=== PATIENT | female | born 1955 | race Caucasian/White ===

== ENCOUNTER → 2016-07-06 | Outpatient (CLI) | payer BC ==
[~2016-07-06] MED LIST: AMBIEN5 MG PO; ASPIRIN325 MG PO; ASPIRIN81 M1 PO; COMBIVENT1 AR1 IH; FLEXERIL10 MG PO; FLOVENT HF0.11 MG/AC INH; HUMULIN 70/30 703 M1 SC; HYDR12.5C PO; JANUVIA50 MG PO; LANTUS100 U/ML SC; LIPITOR40 MG PO; METFORMIN500 MG PO; NORCO 325 MG-51 TAB PO; SINGULAIR10 MG PO; SYNTHROID,LEVO75 MCG PO; TOPAMAX200 MG PO; ZEBETA5 MG PO; ZEGERID 20 MG-11 CAP PO; ZOFRAN4 MG PO
[2016-07-06 07:06] LABS: BASO % 0.4 % (0.0-1.0); EOS # 0.4 10*3/uL (0.0-0.4); EOS % 3.3 % (1.0-4.0); HEMATOCRIT 45.3 % (37.0-47.0); HEMOGLOBIN 15.8 g/dl (12.0-16.0); LYMPH # 2.8 10*3/uL (1.3-4.4); LYMPH % 25.9 % (27.0-41.0); MEAN CELL VOLUME 89.3 fl (81.0-99.0); MEAN CORPUSCULAR HGB 31.2 pg (27.0-31.0); MEAN CORPUSCULAR HGB CONC 34.9 g/dl (33.0-37.0); MEAN PLATELET VOLUME 11.1 fl (9.6-12.3); MONO # 0.9 10*3/uL (0.1-1.0); MONO % 7.9 % (3.0-9.0); NEUT # 6.7 10*3/uL (2.3-7.9); NEUT % 62.2 % (47.0-73.0); PLATELET COUNT AUTOMATED 198 10*3/uL (130-400); RED BLOOD COUNT 5.07 10*6/uL (4.10-5.10); RED CELL DISTRI WIDTH 12.1 % (0-14.5); WHITE BLOOD COUNT 10.8 10*3/uL (4.8-10.8)
[2016-07-06 07:35] LABS: HEMOGLOBIN A1c 7.8 % (4.8-5.6)
[2016-07-06 07:45] LABS: ALBUMIN 3.5 gm/dl (3.1-4.5); ALKALINE PHOSPHATASE 95 U/L (45-117); BILIRUBIN, DIRECT 0.1 mg/dL (0.0-0.2); BILIRUBIN, TOTAL 0.4 mg/dl (0.2-1.0); BUN 13 mg/dl (7-24); CARBON DIOXIDE 30 mmol/L (21-32); CHLORIDE 103 mmol/L (98-107); CHOLESTEROL 123 mg/dL (<200); EST GLOM FILT AFRICAN AMERICAN > 60 ml/min; GLUCOSE 140 mg/dL (65-99); HDL CHOLESTEROL 33 mg/dl (40-60); IRON 61 ug/dL (50-170); IRON SATURATION 19 %; LDL CHOLESTEROL 52 mg/dL (9-159); PHOSPHOROUS 4.2 mg/dL (2.5-4.9); POTASSIUM 3.5 mmol/L (3.5-5.1); SGOT/AST 31 IU/L (3-35); SGPT/ALT 48 U/L (12-78); SODIUM 142 mmol/L (136-145); TOTAL PROTEIN 7.2 gm/dL (6.4-8.2); TRIGLYCERIDES 191 mg/dl (<150); UIBC 258 ug/dL (110-365); VLDL CHOLESTEROL 38 mg/dL (6-40)
== END | disposition home or self-care (01) ==
LOC: LAB 06:50
PROVIDERS: Internal Medicine
DX: J44.9 Chronic obstructive pulmonary disease, unspecified (principal); E11.9 Type 2 diabetes mellitus without complications; E55.9 Vitamin D deficiency, unspecified; I73.9 Peripheral vascular disease, unspecified

== ENCOUNTER → 2016-10-15 | Outpatient (CLI) | payer OTHER | END | disposition home or self-care (01) | LOC: RAD 07:50 | DX: M54.2 Cervicalgia (principal) ==

== ENCOUNTER → 2016-10-21 | Outpatient (CLI) | payer OTHER ==
[2016-10-21 14:26] LABS: EST GLOM FILT AFRICAN AMERICAN > 60 ml/min
== END | disposition home or self-care (01) ==
LOC: MRI 03:58
PROVIDERS: Internal Medicine
DX: M54.12 Radiculopathy, cervical region (principal); M43.22 Fusion of spine, cervical region

== ENCOUNTER → 2016-11-13 | Outpatient (CLI) | payer OTHER ==
[2016-11-13 07:15] LABS: HEMOGLOBIN A1c 7.5 % (4.8-5.6)
[2016-11-13 07:36] LABS: ALBUMIN 3.5 gm/dl (3.1-4.5); ALKALINE PHOSPHATASE 104 U/L (45-117); BILIRUBIN, DIRECT 0.2 mg/dL (0.0-0.2); BILIRUBIN, TOTAL 0.5 mg/dl (0.2-1.0); BUN 14 mg/dl (7-24); CARBON DIOXIDE 27 mmol/L (21-32); CHLORIDE 104 mmol/L (98-107); CHOLESTEROL 130 mg/dL (<200); EST GLOM FILT AFRICAN AMERICAN > 60 ml/min; FREE T4 1.09 ng/dl (0.76-1.46); GLUCOSE 103 mg/dL (65-99); HDL CHOLESTEROL 32 mg/dl (40-60); LDL CHOLESTEROL 63 mg/dL (9-159); PHOSPHOROUS 4.2 mg/dL (2.5-4.9); POTASSIUM 3.4 mmol/L (3.5-5.1); SGOT/AST 35 IU/L (3-35); SGPT/ALT 44 U/L (12-78); SODIUM 139 mmol/L (136-145); TOTAL PROTEIN 7.5 gm/dL (6.4-8.2); TRIGLYCERIDES 175 mg/dl (<150); VLDL CHOLESTEROL 35 mg/dL (6-40)
[2016-11-13 08:09] LABS: FOLIC ACID 10.31 ng/mL (>5.38)
== END | disposition home or self-care (01) ==
LOC: LAB 06:45
PROVIDERS: Internal Medicine
DX: G62.9 Polyneuropathy, unspecified (principal); E11.9 Type 2 diabetes mellitus without complications

== ENCOUNTER → 2017-03-03 | Outpatient (CLI) | payer OTHER ==
[2017-03-03 07:15] LABS: BASO # 0.1 10*3/uL (0.0-0.1); BASO % 0.6 % (0.0-1.0); EOS # 0.2 10*3/uL (0.0-0.4); HEMATOCRIT 46.9 % (37.0-47.0); HEMOGLOBIN 16.1 g/dl (12.0-16.0); LYMPH # 2.9 10*3/uL (1.3-4.4); LYMPH % 34.6 % (27.0-41.0); MEAN CELL VOLUME 90.5 fl (81.0-99.0); MEAN CORPUSCULAR HGB 31.1 pg (27.0-31.0); MEAN CORPUSCULAR HGB CONC 34.3 g/dl (33.0-37.0); MEAN PLATELET VOLUME 11.1 fl (9.6-12.3); MONO # 0.6 10*3/uL (0.1-1.0); MONO % 7.4 % (3.0-9.0); NEUT # 4.7 10*3/uL (2.3-7.9); PLATELET COUNT AUTOMATED 217 10*3/uL (130-400); RED BLOOD COUNT 5.18 10*6/uL (4.10-5.10); RED CELL DISTRI WIDTH 11.9 % (0-14.5); WHITE BLOOD COUNT 8.5 10*3/uL (4.8-10.8)
[2017-03-03 07:36] LABS: ALBUMIN 3.4 gm/dl (3.1-4.5); ALKALINE PHOSPHATASE 94 U/L (45-117); BILIRUBIN, DIRECT 0.2 mg/dL (0.0-0.2); BUN 14 mg/dl (7-24); CHLORIDE 101 mmol/L (98-107); CHOLESTEROL 111 mg/dL (<200); CREATININE 0.91 mg/dL (0.55-1.02); HDL CHOLESTEROL 32 mg/dl (40-60); LDL CHOLESTEROL 49 mg/dL (9-159); PHOSPHOROUS 3.6 mg/dL (2.5-4.9); POTASSIUM 3.5 mmol/L (3.5-5.1); SGOT/AST 45 IU/L (3-35); SGPT/ALT 59 U/L (12-78); SODIUM 139 mmol/L (136-145); TOTAL PROTEIN 7.5 gm/dL (6.4-8.2); TRIGLYCERIDES 149 mg/dl (<150); VLDL CHOLESTEROL 30 mg/dL (6-40)
== END | disposition home or self-care (01) ==
LOC: LAB 06:55
PROVIDERS: Internal Medicine
DX: E11.9 Type 2 diabetes mellitus without complications (principal); J44.9 Chronic obstructive pulmonary disease, unspecified

== ENCOUNTER → 2017-03-24 | Outpatient (CLI) | payer OTHER | LOC: RESCLI 08:08 | DX: K12.2 Cellulitis and abscess of mouth (principal); E11.65 Type 2 diabetes mellitus with hyperglycemia; E66.01 Morbid (severe) obesity due to excess calories; I10 Essential (primary) hypertension; E55.9 Vitamin D deficiency, unspecified; I73.9 Peripheral vascular disease, unspecified; G89.29 Other chronic pain; J44.9 Chronic obstructive pulmonary disease, unspecified; J45.20 Mild intermittent asthma, uncomplicated; I25.10 Atherosclerotic heart disease of native coronary artery without angina pectoris; E03.9 Hypothyroidism, unspecified; E78.00 Pure hypercholesterolemia, unspecified; Z79.4 Long term (current) use of insulin; F17.210 Nicotine dependence, cigarettes, uncomplicated; Z88.8 Allergy status to other drugs, medicaments and biological substances ==

== ENCOUNTER → 2017-04-01 | Outpatient (CLI) | payer OTHER ==
[2017-04-02 17:07] LABS: AMPHETAMINE SCREEN, URINE Negative ng/mL (Cutoff=1000); BARBITURATES SCREEN, URINE Negative ng/mL (Cutoff=200); BENZODIAZEPINES SCREEN URINE Negative ng/mL (Cutoff=200); BUPRENORPHINE SCREEN URINE Negative ng/mL (Cutoff=10); CANNABINOID SCREEN, URINE Negative ng/mL (Cutoff=20); CREATININE, UR 169.2 mg/dL (20.0-300.0); METHADONE SCREEN, URINE Negative ng/mL (Cutoff=300); OPIATE SCREEN, URINE Positive ng/mL (Cutoff=300); OXYCODONE SCREEN URINE Positive ng/mL (Cutoff=100); PH URINE 6.8 (4.5-8.9); PROPOXYPHENE SCREEN, URINE Negative ng/mL (Cutoff=300)
== END | disposition home or self-care (01) ==
LOC: LAB 07:17
PROVIDERS: Internal Medicine
DX: M54.2 Cervicalgia (principal); F11.90 Opioid use, unspecified, uncomplicated

== ENCOUNTER → 2017-09-27 | Outpatient (CLI) | payer OTHER ==
[2017-09-27 07:41] LABS: BASO # 0.1 10*3/uL (0.0-0.1); BASO % 0.6 % (0.0-1.0); EOS # 0.2 10*3/uL (0.0-0.4); EOS % 1.6 % (1.0-4.0); HEMATOCRIT 48.6 % (37.0-47.0); HEMOGLOBIN 16.4 g/dl (12.0-16.0); LYMPH # 2.7 10*3/uL (1.3-4.4); LYMPH % 26.1 % (27.0-41.0); MEAN CELL VOLUME 91.7 fl (81.0-99.0); MEAN CORPUSCULAR HGB 30.9 pg (27.0-31.0); MEAN CORPUSCULAR HGB CONC 33.7 g/dl (33.0-37.0); MEAN PLATELET VOLUME 10.7 fl (9.6-12.3); MONO # 0.8 10*3/uL (0.1-1.0); MONO % 7.9 % (3.0-9.0); NEUT # 6.4 10*3/uL (2.3-7.9); NEUT % 63.1 % (47.0-73.0); PLATELET COUNT AUTOMATED 268 10*3/uL (130-400); RED CELL DISTRI WIDTH 11.8 % (0-14.5); WHITE BLOOD COUNT 10.2 10*3/uL (4.8-10.8)
[2017-09-27 07:57] LABS: ALBUMIN 3.6 gm/dl (3.1-4.5); ALKALINE PHOSPHATASE 102 U/L (45-117); BILIRUBIN, DIRECT 0.1 mg/dL (0.0-0.2); BUN 16 mg/dl (7-24); CHLORIDE 101 mmol/L (98-107); CHOLESTEROL 123 mg/dL (<200); HDL CHOLESTEROL 29 mg/dl (40-60); LDL CHOLESTEROL 60 mg/dL (9-159); PHOSPHOROUS 4.2 mg/dL (2.5-4.9); POTASSIUM 3.9 mmol/L (3.5-5.1); SGOT/AST 53 IU/L (3-35); SGPT/ALT 55 U/L (12-78); SODIUM 136 mmol/L (136-145); TOTAL PROTEIN 8.2 gm/dL (6.4-8.2); TRIGLYCERIDES 172 mg/dl (<150); VLDL CHOLESTEROL 34 mg/dL (6-40)
[2017-09-27 08:04] LABS: THYROID STIM HORMONE (HS) 0.945 uIU/ml (0.358-4.75)
== END | disposition home or self-care (01) ==
LOC: LAB 06:49
PROVIDERS: Internal Medicine
DX: E11.9 Type 2 diabetes mellitus without complications (principal); G62.9 Polyneuropathy, unspecified; J44.9 Chronic obstructive pulmonary disease, unspecified

== ENCOUNTER → 2017-09-29 | Outpatient (CLI) | payer OTHER | END | disposition home or self-care (01) | LOC: MAMMO 07:29 | DX: Z12.31 Encounter for screening mammogram for malignant neoplasm of breast (principal) ==

== ENCOUNTER → 2018-06-21 | Outpatient (CLI) | payer OTHER ==
[2018-06-21 08:11] LABS: BASO # 0.1 10*3/uL (0.0-0.1); BASO % 0.6 % (0.0-1.0); EOS # 0.2 10*3/uL (0.0-0.4); EOS % 2.1 % (1.0-4.0); HEMOGLOBIN 14.8 g/dl (12.0-16.0); LYMPH # 2.2 10*3/uL (1.3-4.4); LYMPH % 25.7 % (27.0-41.0); MEAN CELL VOLUME 92.8 fl (81.0-99.0); MEAN CORPUSCULAR HGB 30.5 pg (27.0-31.0); MEAN CORPUSCULAR HGB CONC 32.9 g/dl (33.0-37.0); MEAN PLATELET VOLUME 10.8 fl (9.6-12.3); MONO # 0.8 10*3/uL (0.1-1.0); MONO % 9.2 % (3.0-9.0); NEUT # 5.2 10*3/uL (2.3-7.9); PLATELET COUNT AUTOMATED 177 10*3/uL (130-400); RED BLOOD COUNT 4.85 10*6/uL (4.10-5.10); WHITE BLOOD COUNT 8.4 10*3/uL (4.8-10.8)
[2018-06-21 08:39] LABS: ALBUMIN 3.1 gm/dl (3.1-4.5); BUN 10 mg/dl (7-24); CHLORIDE 105 mmol/L (98-107); CHOLESTEROL 103 mg/dL (<200); CREATININE 0.79 mg/dL (0.55-1.02); HDL CHOLESTEROL 29 mg/dl (40-60); LDL CHOLESTEROL 42 mg/dL (9-159); PHOSPHOROUS 3.9 mg/dL (2.5-4.9); POTASSIUM 3.8 mmol/L (3.5-5.1); SGOT/AST 33 IU/L (3-35); SGPT/ALT 46 U/L (12-78); SODIUM 140 mmol/L (136-145); TOTAL PROTEIN 6.7 gm/dL (6.4-8.2); TRIGLYCERIDES 161 mg/dl (<150); VLDL CHOLESTEROL 32 mg/dL (6-40)
[2018-06-21 08:40] LABS: ALKALINE PHOSPHATASE 87 U/L (45-117); BILIRUBIN, DIRECT 0.2 mg/dL (0.0-0.2)
[2018-06-25 19:06] LABS: AMPHETAMINE, URINE Negative ng/mL (Cutoff=1000)
[2018-06-27 07:57] LABS: BARBITURATE Negative ng/mL (Cutoff=200); COCAINE (METABOLITE) Negative ng/mL (Cutoff=300); MEPERIDINE Negative ng/mL (Cutoff=200); METHADONE Negative ng/mL (Cutoff=300); OPIATES Negative ng/mL (Cutoff=300); PHENCYCLIDINE Negative ng/mL (Cutoff=25); PROPOXYPHENE Negative ng/mL (Cutoff=300)
[2018-06-28 15:13] LABS: CANNABINOIDS Positive (Cutoff=20); CARBOXY THC GC/MS 52 ng/mL (Cutoff=10); OXYCODONE Positive (.); OXYCODONE (GC/MS) 430 ng/mL (Cutoff=300); OXYCODONE/OXYMORPHONE Positive (Cutoff=300); OXYMORPHONE Negative (Cutoff=300); TRAMADOL Negative ng/mL (Cutoff=200)
== END | disposition home or self-care (01) ==
LOC: LAB 07:37
PROVIDERS: Internal Medicine
DX: E11.9 Type 2 diabetes mellitus without complications (principal); M54.16 Radiculopathy, lumbar region; F11.90 Opioid use, unspecified, uncomplicated

== ENCOUNTER → 2018-06-22 | Outpatient (CLI) | payer OTHER | END | disposition home or self-care (01) | LOC: CT 08:48 | DX: R51 Headache (principal); R42 Dizziness and giddiness; J31.0 Chronic rhinitis; J34.89 Other specified disorders of nose and nasal sinuses; Z98.890 Other specified postprocedural states ==

== ENCOUNTER → 2018-08-19 | Outpatient (CLI) | payer OTHER ==
--- NOTE | ~2018-08-19 | PF ---
[place], [place] PULMONARY FUNCTION TEST [id number] UNIT #: [id number] ROOM: DOCTOR: ALLYN DE LA TORRE MD,FADY BIRTHDATE: [birth year] DOS: 08/19/2018 PULMONARY FUNCTION TEST HISTORY: The patient was noted as 63-year-old female, height of 63 inches with weight of 185 pounds and BMI of 32.8 with assessment of symptoms of shortness of breath with exertion, nonproductive cough, wheezing, and chronic tobacco use. Study was ordered from my office. SPIROMETRY: FVC of 2.33 liters, 77% predicted value, FEV1 of 2.04 liters, 86% of predicted value. Ratio of FEV1/FVC is 88%. Post-bronchodilator, no significant improvement occurred. Flow volume was noted essentially normal. The lung volumes, thoracic gas volume recorded as 89%, residual volume of 90%, total lung capacity of 101%. The patient's lung diffusion is 85%. The patient's airway resistance and passive conductance noted normal, partial improvement post-bronchodilator test. FINAL IMPRESSION: Possibility of mild reversible obstructive lung disease cannot be excluded with current pulmonary function test. Clinical correlation would be advised. FADY GRUBER MD CM:PFREPORT:PULMONARY FUNCTION TEST [id number] FADY DE LA TORRE MD
== END | disposition home or self-care (01) ==
LOC: RAD 08:33
DX: J43.8 Other emphysema (principal); E11.9 Type 2 diabetes mellitus without complications; I10 Essential (primary) hypertension; F17.200 Nicotine dependence, unspecified, uncomplicated

== ENCOUNTER → 2018-10-28 | Outpatient (CLI) | payer OTHER | END | disposition home or self-care (01) | LOC: RAD 10:02 | DX: M17.11 Unilateral primary osteoarthritis, right knee (principal); M11.261 Other chondrocalcinosis, right knee; I73.9 Peripheral vascular disease, unspecified ==

== ENCOUNTER → 2018-12-15 | Outpatient (CLI) | payer OTHER ==
[2018-12-15 07:51] LABS: ALBUMIN 3.9 gm/dl (3.1-4.5); CREATININE 1.15 mg/dL (0.55-1.02); FREE T4 1.42 ng/dl (0.76-1.46); TOTAL PROTEIN 7.9 gm/dL (6.4-8.2)
[2018-12-15 07:56] LABS: THYROID STIM HORMONE (HS) 0.371 uIU/ml (0.358-4.75)
[2018-12-16 11:06] LABS: CREATININE,URINE 56.1 mg/dL (Not Estab.); MICRO ALBUMIN/CRE RATIO <5.3 (0.0-30.0)
== END | disposition home or self-care (01) ==
LOC: LAB 07:00
PROVIDERS: Internal Medicine Endocrinology, Diabetes & Metabolism
DX: E11.65 Type 2 diabetes mellitus with hyperglycemia (principal); E55.9 Vitamin D deficiency, unspecified; E03.9 Hypothyroidism, unspecified

== ENCOUNTER → 2018-12-16 | Outpatient (CLI) | payer OTHER ==
[2018-12-16 10:08] LABS: ALBUMIN 3.7 gm/dl (3.1-4.5); CREATININE 1.19 mg/dL (0.55-1.02); TOTAL PROTEIN 7.5 gm/dL (6.4-8.2)
== END | disposition home or self-care (01) ==
LOC: LAB 09:02
PROVIDERS: Internal Medicine Endocrinology, Diabetes & Metabolism
DX: E11.65 Type 2 diabetes mellitus with hyperglycemia (principal); E55.9 Vitamin D deficiency, unspecified; E03.9 Hypothyroidism, unspecified; E04.1 Nontoxic single thyroid nodule

== ENCOUNTER → 2018-12-21 | Outpatient (CLI) | payer BC | END | disposition home or self-care (01) | LOC: LAB 07:45 → US 13:30 | DX: E87.6 Hypokalemia (principal); E04.1 Nontoxic single thyroid nodule ==

== ENCOUNTER → 2018-12-28 | Outpatient (CLI) | payer OTHER | END | disposition home or self-care (01) | LOC: LAB 07:20 | DX: E87.6 Hypokalemia (principal) ==

== ENCOUNTER → 2019-02-27 | Day surgery (SDC) | payer OTHER ==
[2019-02-27 10:16] LABS: ACT PARTIAL THROMBO TIME 24.8 SECONDS (20.0-32.1); INTERNATIONAL NORM RATIO 0.9 (2.0-3.5)
== END | disposition home or self-care (01) ==
LOC: SDC 01:10
PROVIDERS: Internal Medicine Endocrinology, Diabetes & Metabolism
DX: E04.1 Nontoxic single thyroid nodule (principal)

== ENCOUNTER → 2019-02-27 | Outpatient (CLI) | payer OTHER ==
[2019-02-27 10:11] LABS: POTASSIUM 3.9 mmol/L (3.5-5.1)
[2019-02-27 10:21] LABS: FREE T4 1.08 ng/dl (0.76-1.46)
[2019-02-27 10:27] LABS: THYROID STIM HORMONE (HS) 0.52 uIU/ml (0.358-4.75)
== END | disposition home or self-care (01) ==
LOC: LAB 09:40
PROVIDERS: Internal Medicine Endocrinology, Diabetes & Metabolism
DX: E04.1 Nontoxic single thyroid nodule (principal); E03.9 Hypothyroidism, unspecified; E11.65 Type 2 diabetes mellitus with hyperglycemia

== ENCOUNTER → 2019-04-24 | Outpatient (CLI) | payer OTHER | END | disposition home or self-care (01) | LOC: RESCLI 01:11 | DX: Z12.11 Encounter for screening for malignant neoplasm of colon (principal); Z12.39 Encounter for other screening for malignant neoplasm of breast; E11.65 Type 2 diabetes mellitus with hyperglycemia; I25.10 Atherosclerotic heart disease of native coronary artery without angina pectoris; G47.00 Insomnia, unspecified; J45.909 Unspecified asthma, uncomplicated; E78.5 Hyperlipidemia, unspecified; I10 Essential (primary) hypertension; K21.9 Gastro-esophageal reflux disease without esophagitis; E55.9 Vitamin D deficiency, unspecified; G89.29 Other chronic pain; M79.605 Pain in left leg; M54.2 Cervicalgia; F17.200 Nicotine dependence, unspecified, uncomplicated; J44.9 Chronic obstructive pulmonary disease, unspecified; E03.9 Hypothyroidism, unspecified; G43.909 Migraine, unspecified, not intractable, without status migrainosus; Z53.20 Procedure and treatment not carried out because of patient's decision for unspecified reasons; Z79.899 Other long term (current) drug therapy; Z90.89 Acquired absence of other organs; Z88.8 Allergy status to other drugs, medicaments and biological substances ==

== ENCOUNTER → 2019-12-13 | Outpatient (CLI) | payer OTHER | END | disposition home or self-care (01) | LOC: RESCLI 01:09 | PROVIDERS: ATTEND Internal Medicine | DX: E11.65 Type 2 diabetes mellitus with hyperglycemia (principal); M79.605 Pain in left leg; I25.10 Atherosclerotic heart disease of native coronary artery without angina pectoris; G47.00 Insomnia, unspecified; J44.9 Chronic obstructive pulmonary disease, unspecified; E55.9 Vitamin D deficiency, unspecified; K21.9 Gastro-esophageal reflux disease without esophagitis; E78.5 Hyperlipidemia, unspecified; M54.2 Cervicalgia; E03.9 Hypothyroidism, unspecified; I73.9 Peripheral vascular disease, unspecified; F17.210 Nicotine dependence, cigarettes, uncomplicated; Z78.0 Asymptomatic menopausal state; Z79.82 Long term (current) use of aspirin; Z79.899 Other long term (current) drug therapy; Z98.890 Other specified postprocedural states; Z90.49 Acquired absence of other specified parts of digestive tract; Z90.710 Acquired absence of both cervix and uterus; Z95.828 Presence of other vascular implants and grafts ==

== ENCOUNTER → 2020-02-21 | Outpatient (CLI) | payer OTHER | END | disposition home or self-care (01) | LOC: RESCLI 05:09 | PROVIDERS: ATTEND Student in an Organized Health Care Education/Training Program | DX: G43.909 Migraine, unspecified, not intractable, without status migrainosus (principal); F20.0 Paranoid schizophrenia; F31.9 Bipolar disorder, unspecified; K21.9 Gastro-esophageal reflux disease without esophagitis; F41.9 Anxiety disorder, unspecified; G25.81 Restless legs syndrome; E55.9 Vitamin D deficiency, unspecified; R53.82 Chronic fatigue, unspecified; B18.2 Chronic viral hepatitis C; L27.0 Generalized skin eruption due to drugs and medicaments taken internally ==

== ENCOUNTER → 2020-07-10 | Outpatient (CLI) | payer OTHER | END | disposition home or self-care (01) | LOC: RESCLI 01:52 | PROVIDERS: ATTEND Internal Medicine | DX: E11.65 Type 2 diabetes mellitus with hyperglycemia (principal); M79.605 Pain in left leg; I25.10 Atherosclerotic heart disease of native coronary artery without angina pectoris; G47.00 Insomnia, unspecified; J44.9 Chronic obstructive pulmonary disease, unspecified; E55.9 Vitamin D deficiency, unspecified; M54.2 Cervicalgia; E03.9 Hypothyroidism, unspecified; E78.5 Hyperlipidemia, unspecified; K21.00 Gastro-esophageal reflux disease with esophagitis, without bleeding; F17.210 Nicotine dependence, cigarettes, uncomplicated; K12.2 Cellulitis and abscess of mouth; Z78.0 Asymptomatic menopausal state; Z79.82 Long term (current) use of aspirin; Z79.899 Other long term (current) drug therapy; Z79.84 Long term (current) use of oral hypoglycemic drugs; Z98.890 Other specified postprocedural states ==

== ENCOUNTER → 2020-11-19 | Outpatient (CLI) | payer SELFPAY | END | disposition home or self-care (01) | LOC: RESCLI 13:16 | PROVIDERS: ATTEND Internal Medicine | DX: M79.605 Pain in left leg (principal); I25.10 Atherosclerotic heart disease of native coronary artery without angina pectoris; G47.00 Insomnia, unspecified; I10 Essential (primary) hypertension; E55.9 Vitamin D deficiency, unspecified; M54.2 Cervicalgia; K21.00 Gastro-esophageal reflux disease with esophagitis, without bleeding; J44.9 Chronic obstructive pulmonary disease, unspecified; E78.5 Hyperlipidemia, unspecified; F17.210 Nicotine dependence, cigarettes, uncomplicated; E11.65 Type 2 diabetes mellitus with hyperglycemia; E03.9 Hypothyroidism, unspecified; Z78.0 Asymptomatic menopausal state; Z79.82 Long term (current) use of aspirin; Z79.84 Long term (current) use of oral hypoglycemic drugs; Z79.899 Other long term (current) drug therapy; Z90.710 Acquired absence of both cervix and uterus; Z90.49 Acquired absence of other specified parts of digestive tract; Z98.890 Other specified postprocedural states; Z88.8 Allergy status to other drugs, medicaments and biological substances ==

== ENCOUNTER → 2021-05-20 | Outpatient (CLI) | payer SELFPAY | END | disposition home or self-care (01) | LOC: RESCLI 12:56 | PROVIDERS: ATTEND Internal Medicine Nephrology | DX: M79.605 Pain in left leg (principal); I25.10 Atherosclerotic heart disease of native coronary artery without angina pectoris; G47.00 Insomnia, unspecified; E55.9 Vitamin D deficiency, unspecified; Z78.0 Asymptomatic menopausal state; K21.00 Gastro-esophageal reflux disease with esophagitis, without bleeding; J44.9 Chronic obstructive pulmonary disease, unspecified; E11.65 Type 2 diabetes mellitus with hyperglycemia; E78.5 Hyperlipidemia, unspecified; E03.9 Hypothyroidism, unspecified; I10 Essential (primary) hypertension; Z79.82 Long term (current) use of aspirin; Z79.899 Other long term (current) drug therapy; Z88.8 Allergy status to other drugs, medicaments and biological substances ==

== ENCOUNTER → 2021-07-22 | Outpatient (CLI) | payer MEDICARE | END | disposition home or self-care (01) | LOC: RESCLI 12:53 | PROVIDERS: ATTEND Emergency Medicine | DX: Z13.820 Encounter for screening for osteoporosis (principal); Z13.9 Encounter for screening, unspecified; G24.01 Drug induced subacute dyskinesia; K21.00 Gastro-esophageal reflux disease with esophagitis, without bleeding; K21.9 Gastro-esophageal reflux disease without esophagitis; J44.9 Chronic obstructive pulmonary disease, unspecified; Z12.31 Encounter for screening mammogram for malignant neoplasm of breast; I11.9 Hypertensive heart disease without heart failure; E11.65 Type 2 diabetes mellitus with hyperglycemia; I25.10 Atherosclerotic heart disease of native coronary artery without angina pectoris; Z86.39 Personal history of other endocrine, nutritional and metabolic disease; G47.00 Insomnia, unspecified; E55.9 Vitamin D deficiency, unspecified; Z78.0 Asymptomatic menopausal state; E78.5 Hyperlipidemia, unspecified; E03.9 Hypothyroidism, unspecified; Z79.899 Other long term (current) drug therapy; Z79.82 Long term (current) use of aspirin; Z88.8 Allergy status to other drugs, medicaments and biological substances ==

== ENCOUNTER → 2021-07-24 | Outpatient (CLI) | payer MEDICARE ==
[2021-07-24 08:37] LABS: BASO % 0.4 % (0.0-1.0); EOS # 0.2 10*3/uL (0.0-0.4); EOS % 1.7 % (1.0-4.0); HEMATOCRIT 46.2 % (37.0-47.0); LYMPH # 1.8 10*3/uL (1.3-4.4); MEAN CELL VOLUME 94.5 fl (81.0-99.0); MEAN CORPUSCULAR HGB 31.3 pg (27.0-31.0); MEAN CORPUSCULAR HGB CONC 33.1 g/dl (33.0-37.0); MEAN PLATELET VOLUME 11.4 fl (9.6-12.3); MONO # 0.8 10*3/uL (0.1-1.0); MONO % 7.6 % (3.0-9.0); NEUT # 7.3 10*3/uL (2.3-7.9); PLATELET COUNT AUTOMATED 200 10*3/uL (130-400); RED BLOOD COUNT 4.89 10*6/uL (4.10-5.10); RED CELL DISTRI WIDTH 13.6 % (0-14.5); WHITE BLOOD COUNT 10.1 10*3/uL (4.8-10.8)
[2021-07-24 08:58] LABS: ALKALINE PHOSPHATASE 98 U/L (45-117); BUN 18 mg/dl (7-24); CHLORIDE 105 mmol/L (98-107); CHOLESTEROL 116 mg/dL (<200); CREATININE 0.82 mg/dL (0.55-1.02); LDL CHOLESTEROL 52 mg/dL (9-159); POTASSIUM 4.3 mmol/L (3.5-5.1); SGOT/AST 22 IU/L (3-35); SGPT/ALT 45 U/L (12-78); SODIUM 138 mmol/L (136-145); TOTAL PROTEIN 7.2 gm/dL (6.4-8.2); TRIGLYCERIDES 132 mg/dl (<150)
== END | disposition home or self-care (01) ==
LOC: LAB 07:52
PROVIDERS: ATTEND Internal Medicine
DX: Z13.9 Encounter for screening, unspecified (principal); I10 Essential (primary) hypertension; E03.9 Hypothyroidism, unspecified; E11.9 Type 2 diabetes mellitus without complications; I25.10 Atherosclerotic heart disease of native coronary artery without angina pectoris

== ENCOUNTER → 2021-08-18 | Outpatient (CLI) | payer MEDICARE | END | disposition home or self-care (01) | LOC: MAMMO 09:00 | PROVIDERS: ATTEND Internal Medicine Nephrology | DX: Z12.31 Encounter for screening mammogram for malignant neoplasm of breast (principal); Z13.820 Encounter for screening for osteoporosis; Z13.9 Encounter for screening, unspecified; E04.2 Nontoxic multinodular goiter; M85.851 Other specified disorders of bone density and structure, right thigh; N64.89 Other specified disorders of breast; Z86.39 Personal history of other endocrine, nutritional and metabolic disease ==

== ENCOUNTER → 2022-06-30 | Outpatient (CLI) | payer MEDICARE | END | disposition home or self-care (01) | LOC: RESCLI 00:33 | PROVIDERS: ATTEND Student in an Organized Health Care Education/Training Program | DX: E11.65 Type 2 diabetes mellitus with hyperglycemia (principal); E03.9 Hypothyroidism, unspecified; E55.9 Vitamin D deficiency, unspecified; J44.9 Chronic obstructive pulmonary disease, unspecified; E78.5 Hyperlipidemia, unspecified; I25.10 Atherosclerotic heart disease of native coronary artery without angina pectoris; I73.9 Peripheral vascular disease, unspecified; M54.2 Cervicalgia; G47.00 Insomnia, unspecified; Z79.4 Long term (current) use of insulin; Z88.8 Allergy status to other drugs, medicaments and biological substances; Z87.891 Personal history of nicotine dependence; Z98.890 Other specified postprocedural states; Z82.49 Family history of ischemic heart disease and other diseases of the circulatory system; Z79.84 Long term (current) use of oral hypoglycemic drugs; Z79.899 Other long term (current) drug therapy ==

== ENCOUNTER → 2023-07-08 | Outpatient (CLI) | payer MEDICARE | END | disposition home or self-care (01) | LOC: RESCLI 01:38 | PROVIDERS: ATTEND Internal Medicine | DX: E11.65 Type 2 diabetes mellitus with hyperglycemia (principal); E03.9 Hypothyroidism, unspecified; I11.0 Hypertensive heart disease with heart failure; I50.9 Heart failure, unspecified; G24.01 Drug induced subacute dyskinesia; G47.00 Insomnia, unspecified; E78.5 Hyperlipidemia, unspecified; K21.00 Gastro-esophageal reflux disease with esophagitis, without bleeding; I25.10 Atherosclerotic heart disease of native coronary artery without angina pectoris; E55.9 Vitamin D deficiency, unspecified; Z88.8 Allergy status to other drugs, medicaments and biological substances; G89.29 Other chronic pain; M62.838 Other muscle spasm; Z98.890 Other specified postprocedural states; Z87.891 Personal history of nicotine dependence; Z79.899 Other long term (current) drug therapy ==

== ENCOUNTER → 2024-01-12 | Day surgery (SDC) | payer MEDICARE ==
[~2024-01-12] VITALS: Ht 154.9 cm; Wt 54.9 kg
[~2024-01-12] MED LIST changes: +ACETAMINOPHEN500 M4 PO; +BUPIVACAINE 0.5% 10 ML VIAL ONE; +Lactated Ringer's Solution 1,000 ML IV ONE; +Lactated Ringer's Solution 1,000 ML IV SCH; +METOPROLOL SUCC25 M2 PO; +Midazolam Hydrochloride 2 MG/2 ML VIAL IV ONE; +Ondansetron Hydrochloride 4 MG/2 ML VIAL IV ONE; +TRAMADOL HCL50 MG PO; +VIBRA-TAB100 MG PO; +Vancomycin Hydrochloride 1,000 MG VIAL T ONE; +XARELTO10 MG PO; +ceFAZolin sodium/sodium chlor 20 ML IV ONE; +fentaNYL CITRATE 100 MCG/2 ML VIAL IV ONE
[2024-01-12 11:46] VITALS: BP 133/69
[2024-01-12 13:25] VITALS: BP 109/54
[2024-01-12 13:40] VITALS: BP 100/58
[2024-01-12 13:55] VITALS: BP 116/61
[2024-01-13 14:10] LABS: ACID FAST SPEC PROCESSING Tissue Grinding (.)
[2024-01-13 16:09] LABS: ACID FAST SPEC PROCESSING Tissue Grinding (.)
[2024-01-13 16:09] LABS: ACID FAST SPEC PROCESSING Tissue Grinding (.)
[2024-01-13 16:09] LABS: ACID FAST SPEC PROCESSING Tissue Grinding (.)
== END | disposition home or self-care (01) ==
LOC: SDC 01-07 14:45
PROVIDERS: ATTEND Podiatrist
DX: S91.001A Unspecified open wound, right ankle, initial encounter (principal); M86.671 Other chronic osteomyelitis, right ankle and foot; I96 Gangrene, not elsewhere classified; I10 Essential (primary) hypertension; I25.10 Atherosclerotic heart disease of native coronary artery without angina pectoris; E78.00 Pure hypercholesterolemia, unspecified; J44.9 Chronic obstructive pulmonary disease, unspecified; E10.9 Type 1 diabetes mellitus without complications; E03.9 Hypothyroidism, unspecified; F41.9 Anxiety disorder, unspecified; E78.5 Hyperlipidemia, unspecified; F41.8 Other specified anxiety disorders; F17.210 Nicotine dependence, cigarettes, uncomplicated; Z88.8 Allergy status to other drugs, medicaments and biological substances; Z79.890 Hormone replacement therapy; Z79.82 Long term (current) use of aspirin; Z79.4 Long term (current) use of insulin; Z79.84 Long term (current) use of oral hypoglycemic drugs; Z79.899 Other long term (current) drug therapy; Z83.3 Family history of diabetes mellitus; Z82.49 Family history of ischemic heart disease and other diseases of the circulatory system; X58.XXXA Exposure to other specified factors, initial encounter; Y93.89 Activity, other specified; Y92.89 Other specified places as the place of occurrence of the external cause; Y99.8 Other external cause status